=== PATIENT | male | born 1950 | race Caucasian/White ===

== ENCOUNTER 2018-02-24 11:33 | Emergency (ER) | payer OTHER ==
[~2018-02-24 11:33] MED LIST: CALC60CR4 TOP; CALC60OI6 TP; CELE50CA2 PO; CEP500 PO; CLIN300C99 PO; FOLI0.4T56 PO; GLUC-232 PO; HYDROCORTISONE VALERATE TOP; LACT1TAB2 PO; LISI-362 PO; METH2.5T43 PO; METXR500 PO; MULTIVITAMIN PO; OMEG-61 PO; PRA20 PO; UBID400C6 PO; VIT C WITH ROSE HIPS PO; WESTCORT; [UNRECOGNIZED DRUG - CODE] TOP
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
--- NOTE | 2018-02-24 12:46 | RADIOLOGY IMAGING REPORT ---
FACILITY: [facility] PATIENT NAME: Clement Fuentes : 1950 MR: [id number] V: [id number] EXAM DATE: ORDERING PHYSICIAN: LIN SANTANA TECHNOLOGIST: Location: [facility] [place] Patient: Clement Fuentes : 1950 Visit/Account:[id number] Date of Sevice: 02/24/2018 TIBIA FIBULA RIGHT Indication: Infection. Possible osteomyelitis. Comparison: CT scan 02/27/2017 is reviewed. Findings: Frontal and lateral views of the right tibia-fibula are obtained on a total of 4 images. No acute fracture deformity is identified. There is an old fracture deformity involving the proximal tibial metaphysis and the tibial plateaus. There is a well-corticated defect in the bone involving th e medial tibial cortex. This was seen on the prior CT scan. No soft tissue gas. No evidence of active bone destruction on any image is identified. No radiographic evidence of osteomyelitis. Within the s oft tissues posteriorly involving the distal portion of the lower leg, there is an oval shaped densit y. This was seen on the prior CT scan and may be a postsurgical change. This could be related to hete rotopic bone or myositis ossificans in the appropriate setting. There are scattered surgical clips se en. Within the midportion of the lower leg, there are areas of focal soft tissue swelling identified. There is a heel spur. There are changes of osteoarthritis at the ankle and at the knee. IMPRESSION: 1. No radiographic evidence of osteomyelitis. 2. Old healed fracture deformity of the proximal right tibia with a well-corticated defect in the med ial tibial cortex without change from the prior CT scan. 3. Soft tissue edema involving the midportion of the lower leg. No evidence of soft tissue gas. Report Dictated By: Mathew aJin at 02/24/2018 12:38 PM Report E-Signed By: Mathew Jain at 02/24/2018 12:43 PM WSN:[id number]
[2018-02-24] MEDS ORDERED: CEPH500T7 PO (13:24)
[2018-02-24 13:27] VITALS: BP 130/88
== END 2018-02-24 13:40 | disposition home or self-care (01) ==
LOC: ER 11:52
DX: L03.115 Cellulitis of right lower limb (principal)
CPT/HCPCS: 99283

== ENCOUNTER 2018-02-25 09:23 | Inpatient (IN) | payer OTHER, MEDICARE ==
[~2018-02-25] VITALS: Ht 185.4 cm; Wt 128.8 kg
[~2018-02-25 09:23] MED LIST changes: +CEPH500T7 PO
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
[2018-02-25] MEDS ORDERED: NS 0.9% IV ONE (09:50)
[2018-02-25] MEDS ORDERED: ONDANSETRON 4 MG/2 ML VIAL ONE (09:52)
[2018-02-25 10:09] LABS: PLATELET COUNT, AUTOMATED 247 K/uL (150-450)
[2018-02-25 10:13] LABS: INR 0.97
[2018-02-25] MEDS ORDERED: VANCOMYCIN(*) 1 GM VIAL 2 GM in NS(*) 0.9% 500 ML BAG 500 ML IVPB ONE (11:10)
[2018-02-25] MEDS ORDERED: IOPAMIDOL 76% 50 ML INFUS BTL 50 ML ONE (11:33)
[2018-02-25] MEDS ORDERED: VANCOMYCIN(*) 1 GM VIAL 2 GM, VANCOMYCIN (*) 0.5 GM VIAL 0.5 GM in NS(*) 0.9% 500 ML BA... IVPB ONE (12:00)
--- NOTE | 2018-02-25 12:01 | RADIOLOGY IMAGING REPORT ---
FACILITY: [facility] [place] PATIENT NAME: Clement Fuentes : 1950 MR: [id number] V: [id number] EXAM DATE: [id number] ORDERING PHYSICIAN: JACKIE CRANE TECHNOLOGIST: Location: [facility] Patient: Clement Fuentes : 1950 Visit/Account:[id number] Date of Sevice: 02/25/2018 EXAMINATION: CT Head without intravenous contrast HISTORY: Syncope. TECHNIQUE: Axial images were obtained from the skull base to the vertex without intravenous contrast . Sagittal and coronal reformatted images are also submitted. One of the following dose optimization techniques was utilized in the performance of this exam: Autom ated exposure control; adjustment of the mA and/or kV according to the patient's size; or use of an i terative reconstruction technique. Specific details can be referenced in the facility's radiology C T exam operational policy. COMPARISON: None available. FINDINGS: Brain volume: Normal. Ventricles: Negative. Acute ischemic changes: None. Hemorrhage: None. Masses / edema: None. Vidal-white: Negative. White matter: Negative. Vessels: Calcified plaque in the carotid siphons. Normal density in the dural venous sinuses. Extra-axial: Negative. Calvarium / skull base: Negative. Visualized sinuses / orbits: Mild to moderate mucosal thickening in the right maxillary sinus, ethmo id air cells, and frontal sinuses. Rightward nasal septal deviation. IMPRESSION: No acute intracranial abnormality. Report Dictated By: Dequan Boo MD at 02/25/2018 11:54 AM Report E-Signed By: Deqaun Boo MD at 02/25/2018 11:58 AM WSN:[id number]
--- NOTE | 2018-02-25 12:26 | RADIOLOGY IMAGING REPORT ---
FACILITY: [facility] PATIENT NAME: Clement Fuentes : 1950 MR: [id number] V: [id number] EXAM DATE: ORDERING PHYSICIAN: JACKIE CRANE TECHNOLOGIST: Location: [facility] Patient: Clement Fuentes : 1950 Visit/Account:[id number] Date of Sevice: 02/25/2018 CHEST SINGLE AP Indication: syncope Comparison: Chest x-ray 02/27/2017. Findings: Lungs: Clear. Mediastinum/pulmonary vasculature: Heart size and pulmonary vasculature are normal. Bones/soft tissues: There is an old healed fracture on the right 11th and eighth rib. IMPRESSION: 1. Clear lungs. 2. Old healed right-sided rib fractures. Report Dictated By: Darron Castaneda at 02/25/2018 12:21 PM Report E-Signed By: Darron Castaneda at 02/25/2018 12:23 PM WSN:[id number]
--- NOTE | 2018-02-25 13:52 | RADIOLOGY IMAGING REPORT ---
FACILITY: [facility] [place] PATIENT NAME: Clement Fuentes : 1950 MR: [id number] V: [id number] EXAM DATE: ORDERING PHYSICIAN: JACKIE CRANE TECHNOLOGIST: Location: [facility] Patient: Clement Fuentes : 1950 Visit/Account:[id number] Date of Sevice: 02/25/2018 EXAMINATION: CT abdomen and pelvis with IV contrast HISTORY: Syncope. Nausea, vomiting, diarrhea. TECHNIQUE: Axial CT images of the abdomen and pelvis were obtained with IV contrast, with coronal a nd sagittal 2D reconstructed images. One of the following dose optimization techniques was utilized in the performance of this exam: Autom ated exposure control; adjustment of the mA and/or kV according to the patient's size; or use of an i terative reconstruction technique. Specific details can be referenced in the facility's radiology C T exam operational policy. Contrast: 75 mL of IV Isovue-370. COMPARISON: None. FINDINGS: Liver: Fatty infiltration of the liver. Normal hepatic size and morphology. No focal liver lesion. The hepatic veins and portal veins are patent. Gallbladder and bile ducts: Negative. Spleen: Negative. Pancreas: Negative. Adrenal glands: Negative. Kidneys: Single nonobstructing 2 mm calculus in the mid right kidney. No hydronephrosis. There is a 1.9 cm cortical cyst along the lower pole of the right kidney. Bowel and peritoneum: The small bowel and colon are normal in caliber. No localized bowel wall thic kening. Extensive colonic diverticulosis along the descending and sigmoid colon, without evidence of a localized diverticulitis. Normal appendix. No free fluid or free intraperitoneal air. Pelvic structures: Negative. Lymph node assessment: Negative. Vessels: Scattered vascular calcifications. Normal caliber abdominal aorta. The IVC is patent. Musculoskeletal: Advanced chronic multilevel degenerative changes throughout the spine. No acute o sseous findings. Body wall: Small fat-containing midline ventral hernia just above the umbilicus. Lung bases: Mild scarring or atelectasis at the left lung base. IMPRESSION: 1. No CT evidence of acute intra-abdominal pathology. 2. Colonic diverticulosis, without evidence of diverticulitis. 3. Single small nonobstructing right renal calculus. 4. Normal appendix. Report Dictated By: Vito Noriega MD at 02/25/2018 1:42 PM Report E-Signed By: Vito Noriega MD at 02/25/2018 1:48 PM WSN:[email or web address]
[2018-02-25 15:00] VITALS: BP 107/69
[2018-02-25] MEDS ORDERED: NS(*) 0.9% 1000 ML BAG 1,000 ML IV PRN (15:53)
[2018-02-25] MEDS ORDERED: ACETAMINOPHEN 325 MG TAB PO PRN (15:55)
[2018-02-25] MEDS ORDERED: FLUSH 10 ML SYR IVP PRN (15:55)
[2018-02-25] MEDS: CEFEPIME HCL 2 GM VIAL IVP SCH (16:25)
--- NOTE | 2018-02-25 16:27 | History & Physical ---
History of Present Illness Chief Complaint Vomiting History of Present Illness 67yo male with PMHx significant for HTN, type 2 DM, osteomyelitis right leg. He reports developing redness/pustule over right distal lower leg yesterday. He was seen in the ER and placed on oral Keflex therapy. He states he did well for about 12 hours, but then started having nausea with vomiting and some diarrhea. He additionally felt chilled, but did not appreciate fever. He was lightheaded/dizzy intermittently. The redness on his leg appeared to spread as well. He was seen in the ER and found to have elevated WBC count, elevated lactate, elevated creatinine, and borderline low BP. He was given IV fluids with some improvement in his BPs and labs. He was recommended for admission. History Problems: (1) HTN (hypertension) Status: Chronic (2) Type 2 diabetes mellitus Status: Chronic (3) Osteomyelitis of right leg Status: Resolved (4) Psoriasis Status: Chronic Home Meds Active Scripts Cephalexin 500 Mg Tab (KEFLEX 500 MG TAB) 500 Mg Tablet, 500 MG PO Q6H, #28 TAB 0 Refills Prov:DEQUAN SANTANA FOOD BEVERAGE ATTENDANT-BC 02/24/18 Clindamycin Hcl (CLINDAMYCIN HCL) 300 Mg Capsule, 300 MG PO Q6H, #40 CAPSULE Prov:DENZEL HARRIS BRAIDING OPERATOR-C 02/27/17 Reported Medications Folic Acid (Folic Acid) 0.4 Mg Tablet, 0.4 MG PO DAILY 11/11/11 [place]-3/Dha/Epa/Fish Oil (FISH OIL EC 1,000 MG SOFTGEL) 1 Each Capsule.dr, 1 EACH PO DAILY 11/11/11 Clobetasol Propionate (TEMOVATE E (OR EQUIV)) 30 Gm Cr, 30 GM TOP APPLY TO SITES NEEDED 11/11/11 [Hydrocort Valerate ] No Conflict Check, TOP DAILY APPLIED TO AFFECTED AREAS 11/11/11 Betamet Diprop/Calcipotriene (Taclonex Ointment) 60 Gm Oint..gm., 60 GM TP DAILY APPLIES TO PSORIASIS SITES 11/11/11 [Westcort Cream] No Conflict Check APPLIES TO PSORIASIS SITES. 11/11/11 Gluc 2KCL/Chondr/Priyanka Hy/Hy Ac (GLUCOSAMINE & CHONDROITIN CAP) 1 Each Capsule, 3 EACH PO DAILY 11/11/11 Ubidecarenone (CO Q-10) 400 Mg Capsule, 50 MG PO DAILY 11/11/11 Lactobacillus Acidophilus (ACIDOPHILUS) 1 Each Tablet, 1 EACH PO DAILY 11/11/11 [Vit C With Gabi Hips] No Conflict Check, 2 PO DAILY 11/11/11 [Multivitamin] No Conflict Check, PO DAILY 11/11/11 Celecoxib (Celebrex) 50 Mg Capsule, 200 MG PO DAILY, 0 Refills 04/18/10 Pravastatin Sod (Pravachol) 20 Mg Tab, 20 MG PO QODAY, 0 Refills 04/18/10 Metformin Hcl (Metformin Er) 500 Mg Tab.sr.24h, 1000 MG PO BID, 0 Refills 04/18/10 Lisinopril (Lisinopril) 10 Mg Tablet, 10 MG PO DAILY, 0 Refills 04/18/10 Allergies: Coded Allergies: No Known Drug Allergies (Unverified , 02/25/18) Hx Smoking: Yes Hx Alcohol Use: No Review of Systems Constitutional: Chills; No Fever Neurological: Syncope, Weakness Cardiovascular: No Chest Pain, No Palpitations Respiratory: No Shortness of Breath, No Cough Gastrointestinal: Nausea, Vomiting, Diarrhea Genitourinary: No Dysuria Musculoskeletal: Pain Exam Vital Signs Vital Signs Date Time Temp Pulse Resp B/P (MAP) Pulse Ox O2 Delivery O2 Flow Rate FiO2 02/25/18 15:00 107/69 (82) 02/25/18 14:40 82 94 Nasal Cannula 2 02/25/18 13:05 14 General Appearance: Alert, Awake Neuro: No Gross deficits ENT: Oropharynx Clear Neck: No Masses Cardiovascular: Regular Rate and Rhythm Respiratory: Clear to Auscultation GI: Abd Soft and Non-Tender : No CVA Tenderness Extremities: Warm, Perfused, Other (RLE with multiple healed surgical scars/muscle flap/skin graft scars. Distal RLE has erythema in near circuferential pattern with an open area over posterolateral aspect - no current drainage is noted, but a small amount of eschar.) Integumentary: Other (some chronic venous stasis changes on anterior tibial area RLE) Psych: Alert & Oriented X3 Medical Decision Making Data Points Result Diagram: 02/25/18 0945 02/25/18 1424 Item Value Date Time C-Reactive Protein 4.4 mg/dl H 02/25/18 0945 Troponin I < 0.012 ng/ml 02/25/18 0945 Total Creatine Kinase 52 U/L L 02/25/18 0945 Lactate 4.4 mmol/L *H 02/25/18 0945 Calcium Level 9.5 mg/dl 02/25/18 0945 Total Bilirubin 0.7 mg/dl 02/25/18 0945 Aspartate Amino Transf (AST/SGOT) 20 U/L 02/25/18 0945 Alanine Aminotransferase (ALT/SGPT) 24 U/L 02/25/18 0945 Alkaline Phosphatase 100 U/L 02/25/18 0945 Total Protein 8.0 g/dl 02/25/18 0945 Albumin 4.6 g/dl 02/25/18 0945 Urine Mucus Few /HPF 02/25/18 1145 Urine Hyaline Casts Many /LPF H 02/25/18 1145 Urine Bacteria Negative /HPF 02/25/18 1145 Urine Squamous Epithelial Cells Few /LPF 02/25/18 1145 Urine WBC <1 /HPF 02/25/18 1145 Urine RBC None /HPF 02/25/18 1145 Urine Leukocyte Esterase Negative 02/25/18 1145 Urine Urobilinogen Negative mg/dL 02/25/18 1145 Urine Bilirubin Negative 02/25/18 1145 Urine Nitrite Negative 02/25/18 1145 Urine Blood Negative 02/25/18 1145 Urine Ketones Trace mg/dL 02/25/18 1145 Urine Glucose (UA) Negative mg/dL 02/25/18 1145 Urine Protein Negative mg/dL 02/25/18 1145 Urine Specific [place] 1.013 02/25/18 1145 Urine pH 5.0 pH 02/25/18 1145 Urine Clarity Clear 02/25/18 1145 Urine Color Yellow 02/25/18 1145 Influenza Virus Type A (PCR) Negative 02/25/18 1022 Influenza Virus Type B (PCR) Negative 02/25/18 1022 Stool Leukocytes, Qualitative Negative 02/25/18 1020 Activated Partial Thromboplast Time 28 seconds 02/25/18 0945 Prothrombin Time 12.9 seconds 02/25/18 0945 Prothromb Time International Ratio 0.97 02/25/18 0945 EKG / Imaging Imaging PATIENT NAME: Clement Fuentes : 1950 MR: [id number] V: [id number] EXAM DATE: [id number] ORDERING PHYSICIAN: JACKIE CRANE TECHNOLOGIST: Location: [facility] Patient: Clement Fuentes : 1950 Visit/Account:[id number] Date of Sevice: 02/25/2018 CHEST SINGLE AP Indication: syncope Comparison: Chest x-ray 02/27/2017. Findings: Lungs: Clear. Mediastinum/pulmonary vasculature: Heart size and pulmonary vasculature are normal. Bones/soft tissues: There is an old healed fracture on the right 11th and eighth rib. IMPRESSION: 1. Clear lungs. 2. Old healed right-sided rib fractures. Report Dictated By: Darron Castaneda at 02/25/2018 12:21 PM Report E-Signed By: Darron Castaneda at 02/25/2018 12:23 PM WSN:[id number] PATIENT NAME: Clement Fuentes : 1950 MR: [id number] V: [id number] EXAM DATE: [id number] ORDERING PHYSICIAN: JACKIE CRANE TECHNOLOGIST: Location: [facility] Patient: Clement Fuentes : 1950 Visit/Account:[id number] Date of Sevice: 02/25/2018 EXAMINATION: CT abdomen and pelvis with IV contrast HISTORY: Syncope. Nausea, vomiting, diarrhea. TECHNIQUE: Axial CT images of the abdomen and pelvis were obtained with IV contrast, with coronal and sagittal 2D reconstructed images. One of the following dose optimization techniques was utilized in the performance of this exam: Automated exposure control; adjustment of the mA and/or kV according to the patient's size; or use of an iterative reconstruction technique. Specific details can be referenced in the facility's radiology CT exam operational policy. Contrast: 75 mL of IV Isovue-370. COMPARISON: None. FINDINGS: Liver: Fatty infiltration of the liver. Normal hepatic size and morphology. No focal liver lesion. The hepatic veins and portal veins are patent. Gallbladder and bile ducts: Negative. Spleen: Negative. Pancreas: Negative. Adrenal glands: Negative. Kidneys: Single nonobstructing 2 mm calculus in the mid right kidney. No hydronephrosis. There is a 1.9 cm cortical cyst along the lower pole of the right kidney. Bowel and peritoneum: The small bowel and colon are normal in caliber. No lo calized bowel wall thickening. Extensive colonic diverticulosis along the descending and sigmoid colon, without evidence of a localized diverticulitis. Normal appendix. No free fluid or free intraperitoneal air. Pelvic structures: Negative. Lymph node assessment: Negative. Vessels: Scattered vascular calcifications. Normal caliber abdominal aorta. The IVC is patent. Musculoskeletal: Advanced chronic multilevel degenerative changes throughout the spine. No acute osseous findings. Body wall: Small fat-containing midline ventral hernia just above the umbilicus. Lung bases: Mild scarring or atelectasis at the left lung base. IMPRESSION: 1. No CT evidence of acute intra-abdominal pathology. 2. Colonic diverticulosis, without evidence of diverticulitis. 3. Single small nonobstructing right renal calculus. 4. Normal appendix. Report Dictated By: Vito Noriega MD at 02/25/2018 1:42 PM Report E-Signed By: Vito Noriega MD at 02/25/2018 1:48 PM WSN:[id number] PATIENT NAME: Clement Fuentes : 1950 MR: [id number] V: [id number] EXAM DATE: [id number] ORDERING PHYSICIAN: JACKIE CRANE TECHNOLOGIST: Location: [facility] Patient: Clement Fuentes : 1950 Visit/Account:[id number] Date of Sevice: 02/25/2018 EXAMINATION: CT Head without intravenous contrast HISTORY: Syncope. TECHNIQUE: Axial images were obtained from the skull base to the vertex without intravenous contrast. Sagittal and coronal reformatted images are also submitted. One of the following dose optimization techniques was utilized in the performance of this exam: Automated exposure control; adjustment of the mA and/ or kV according to the patient's size; or use of an iterative reconstruction technique. Specific details can be referenced in the facility's radiology CT exam operational policy. COMPARISON: None available. FINDINGS: Brain volume: Normal. Ventricles: Negative. Acute ischemic changes: None. Hemorrhage: None. Masses / edema: None. Vidal-white: Negative. White matter: Negative. Vessels: Calcified plaque in the carotid siphons. Normal density in the dural venous sinuses. Extra-axial: Negative. Calvarium / skull base: Negative. Visualized sinuses / orbits: Mild to moderate mucosal thickening in the right maxillary sinus, ethmoid air cells, and frontal sinuses. Rightward nasal septal deviation. IMPRESSION: No acute intracranial abnormality. Report Dictated By: Dequan Boo MD at 02/25/2018 11:54 AM Report E-Signed By: Dequan Boo MD at 02/25/2018 11:58 AM WSN:[id number] PATIENT NAME: Clement Fuentes : 1950 MR: [id number] V: [id number] EXAM DATE: ORDERING PHYSICIAN: DEQUAN SANTANA TECHNOLOGIST: Location: [facility] Patient: Clement Fuentes : 1950 Visit/Account:[id number] Date of Sevice: 02/24/2018 TIBIA FIBULA RIGHT Indication: Infection. Possible osteomyelitis. Comparison: CT scan 02/27/2017 is reviewed. Findings: Frontal and lateral views of the right tibia-fibula are obtained on a total of 4 images. No acute fracture deformity is identified. There is an old fracture deformity involving the proximal tibial metaphysis and the tibial plateaus. There is a well-corticated defect in the bone involving the medial tibial cortex. This was seen on the prior CT scan. No soft tissue gas. No evidence of active bone destruction on any image is identified. No radiographic evidence of osteomyelitis. Within the soft tissues posteriorly involving the distal portion of the lower leg, there is an oval shaped density. This was seen on the prior CT scan and may be a postsurgical change. This could be related to heterotopic bone or myositis ossificans in the appropriate setting. There are scattered surgical clips seen. Within the midportion of the lower leg, there are areas of focal soft tissue swelling identified. There is a heel spur. There are changes of osteoarthritis at the ankle and at the knee. IMPRESSION: 1. No radiographic evidence of osteomyelitis. 2. Old healed fracture deformity of the proximal right tibia with a well-c orticated defect in the medial tibial cortex without change from the prior CT scan. 3. Soft tissue edema involving the midportion of the lower leg. No evidence of soft tissue gas. Report Dictated By: Mathew Jain at 02/24/2018 12:38 PM Report E-Signed By: Mathew Jain at 02/24/2018 12:43 PM WSN:[id number] Assessment and Plan Problems: (1) Cellulitis of right lower extremity Status: Acute Assessment & Plan: It appears he has significant cellulitis of his RLE with possible early sepsis as well. He will be placed on IV vancomycin and cefepime. Blood cultures have been obtained. No obvious fluid/pus for wound culture at this time. Start wound care. Will watch labs closely. Try to get records from his osteomyelitis treatment. He is at risk for potentially resistant organisms. (2) Sepsis Status: Acute Assessment & Plan: Due to cellulitis. Will monitor lactate levels. Watch closely. Give generous IV fluids. (3) Dehydration Status: Acute Assessment & Plan: Due to poor intake/vomiting. Will give generous IV fluids. (4) Type 2 diabetes mellitus Status: Chronic Assessment & Plan: Will hold his usual metformin (it could contribute to his lactic acidosis). Will place on ADA diet, monitor glucoses and use SSI as needed. (5) HTN (hypertension) Status: Chronic Assessment & Plan: Will hold his lisinopril as his BPs have been marginal due to dehydration and potential sepsis. (6) Osteomyelitis of right leg Status: Resolved Assessment & Plan: Will try to get old records. Copies to: [facility] ; Venous Thromboembolism Antithrombotics Is Pt On Any Antithrombotics?: Yes Exam Sepsis Risk: Possible Sepsis Risk Problem Qualifiers (1) Sepsis: Sepsis type: sepsis due to unspecified organism Qualified Codes: A41.9 - Sepsis, unspecified organism GALEN ADAMSON MD Feb 25, 2018 16:27
[2018-02-25] MEDS: INSULIN HUM LISPRO 100 UN/ML 3 ML VIAL SUBQ PRN ×2 (17:44→21:23)
[2018-02-25] MEDS: LACTOBACILLUS ACIDOPHILUS TAB PO SCH (17:44)
[2018-02-25 18:57] VITALS: BP 114/64
[2018-02-25] MEDS: NS(*) 0.9% 1000 ML BAG 1,000 ML IV PRN (22:34)
[2018-02-25 23:15] VITALS: BP 114/57
[2018-02-25] MEDS ORDERED: VANCOMYCIN(*) 1 GM VIAL 1 GM, VANCOMYCIN HCL 0.750 GM VIAL 0.75 GM in NS(*) 0.9% 250 ML... IVPB SCH (23:30)
[2018-02-26 03:16] VITALS: BP 114/60
[2018-02-26] MEDS: CEFEPIME HCL 2 GM VIAL IVP SCH ×2 (03:47→16:39)
[2018-02-26 06:10] LABS: PLATELET COUNT, AUTOMATED 144 K/uL (150-450)
[2018-02-26] MEDS: INSULIN HUM LISPRO 100 UN/ML 3 ML VIAL SUBQ PRN ×2 (07:59→11:57)
[2018-02-26] MEDS ORDERED: ONDANSETRON 4 MG/2 ML VIAL IVP PRN (08:30)
[2018-02-26] MEDS ORDERED: LOPERAMIDE HCL 2 MG CAP PO PRN (08:35)
[2018-02-26] MEDS: LACTOBACILLUS ACIDOPHILUS TAB PO SCH ×2 (08:39→16:39)
[2018-02-26] MEDS: ASPIRIN 325 MG ENTERIC COATED PO SCH (08:39)
[2018-02-26] MEDS: ENOXAPARIN 40 MG/0.4ML SYR SC SCH (08:40)
[2018-02-26 08:50] VITALS: BP 111/67
[2018-02-26] MEDS: NS(*) 0.9% 1000 ML BAG 1,000 ML IV PRN ×2 (09:55→23:13)
--- NOTE | 2018-02-26 10:20 | Hospitalist Progress Note ---
Subjective Progress Notes Subjective This patient was admitted for cellulitis. He had no acute events overnight. Patient Complains of: Cardiovascular: No: Chest Pain Respiratory: No: Shortness of Breath Physical Exam Vital Signs Date Time Temp Pulse Resp B/P (MAP) Pulse Ox O2 Delivery O2 Flow Rate FiO2 02/26/18 08:50 97.9 83 16 111/67 (82) 96 Nasal Cannula 1.0 Intake and Output 02/26/18 06:59 Intake Total 6037.5 ml Output Total 500 ml Balance 5537.5 ml Intake Oral 770 ml IV Total 5267.5 ml Output Stool Total 500 ml # Voids 8 # Bowel Movements 8 Cardiovascular: Regular Rate and Rhythm Respiratory: Clear to Auscultation Integumentary: Other (Significantly reduced erythema of right lower leg.) Result Diagram: 02/26/18 0553 02/26/18 0555 Item Value Date Time Blood Culture - Preliminary Resulted 02/25/18 1000 Blood Peripheral Draw NO GROWTH AFTER 1 DAY, REINCUBATED Blood Culture - Preliminary Resulted 02/25/18 0945 Blood Peripheral Draw NO GROWTH AFTER 1 DAY, REINCUBATED Monitor Interpretation: Normal Sinus Rhythm Assessment and Plan Problems: (1) Cellulitis of right lower extremity Status: Acute Assessment & Plan: He did present with increased erythema of the right lower leg. His WBC was elevated and he also had a low grade fever. He was started on empiric treatment with cefepime and vancomycin. His erythema has improved and his WBC is decreased. Cultures are negative to date. He can likely switch to oral antibiotics if his cultures remain negative. (2) Sepsis Status: Acute Assessment & Plan: He did have an elevated WBC and increased lactate. He is improving as above. (3) Dehydration Status: Acute Assessment & Plan: Resolved with IV fluids. (4) Type 2 diabetes mellitus Status: Chronic Assessment & Plan: He is on chronic treatment with metformin, which has been held secondary to lactic acidosis. He is on sliding scale level #2. (5) HTN (hypertension) Status: Chronic Assessment & Plan: He is on chronic treatment with lisinopril, which has been on hold. His blood pressure is controlled without medication. (6) Osteomyelitis of right leg Status: Resolved Assessment & Plan: He does have a history of extensive surgery to the right leg, and subsequent osteomyelitis. An x-ray is pending. (7) Diarrhea Assessment & Plan: His initial complaint was diarrhea, and it persists today. Imodium has been ordered. Exam Sepsis Risk: No Definite Risk Problem Qualifiers (1) Sepsis: Sepsis type: sepsis due to unspecified organism Qualified Codes: A41.9 - Sepsis, unspecified organism (2) HTN (hypertension): Hypertension type: essential hypertension Qualified Codes: I10 - Essential (primary) hypertension ALLAN KHAN DO Feb 26, 2018 10:20
[2018-02-26] MEDS ORDERED: VANCOMYCIN(*) 1 GM VIAL 1 GM, VANCOMYCIN HCL 0.750 GM VIAL 0.75 GM in NS(*) 0.9% 250 ML... IVPB ONE (11:45)
--- NOTE | 2018-02-26 12:02 | RADIOLOGY IMAGING REPORT ---
FACILITY: [facility] PATIENT NAME: Clement Fuentes : 1950 MR: [id number] V: [id number] EXAM DATE: ORDERING PHYSICIAN: ALLAN KHAN TECHNOLOGIST: Location: [facility] Patient: Clement Fuentes : 1950 Visit/Account:[id number] Date of Sevice: 02/26/2018 Exam type: TIBIA FIBULA RIGHT History: cellulitis Comparison: February 24, 2018. Findings: Frontal and lateral views of the right tibia and fibula were submitted. When compared to the prior s tudy there has been no significant interval change. Old fracture deformity involving the proximal ti bial metaphysis and tibial plateaus again seen. Well-corticated defect involving the medial tibial c ortex also appears stable when compared to the prior study. Ovoid shaped bony density is again seen projecting posterior to the distal right tibia apparently a chronic finding. There is old cortical t hickening involving the right tibia and calcifications in the intraosseous membrane. Surgical clips also noted in the midportion of the right lower leg. Soft tissue edema appears similar to the prior study. IMPRESSION: 1. Chronic changes of the right tibia and fibula as detailed above although no plain radiographic ev idence evidence of active osteomyelitis Report Dictated By: Steph Gomez MD at 02/26/2018 11:52 AM Report E-Signed By: Steph Gomez MD at 02/26/2018 11:57 AM WSN:[email or web address]
[2018-02-26 12:07] VITALS: BP 111/65
--- NOTE | 2018-02-26 14:10 | Medical Nutrition Therapy ---
Nutrition Anthropometrics Height (Inches): 73.00 Height (Calculated Centimeters: 185.136082 Weight (Pounds): 284 Weight (Calculated Kilograms): 128.820 Carroll Nutrition Score: Adequate Carroll Nutrition Risk Score: 20 Dietary Referral Nutrition Risk Factors: Nutrition Risk Comment: Physical Findings Physical Appearance: Obese BMI 30-39 Skin Appearance Skin Appearance: Edema Edema Location Modifier: Both Edema Location: Lower Extremity Type of Edema: Degree of Edema: 1+ Gastrointestinal Symptoms GI Symtoms: Nausea, Diarrhea, Change in Bowel Pattern Tube Present: Bowel Sounds: Recent Bowel Pattern: Diarrhea Stool Characteristics: Nutritional Diagnosis Nutritional Risk Acuity 2: Sepsis Nutritional Risk Acuity 3: Nausea Nutritional Acuity: 2-Moderate Nutrition Diagnosis: Increased Nutrient Needs Nutrition Etiology: Physiological Causes Nutrition Problem/Etiology/Sym: AEB dx spesis with alb 2.8 Adjusted Energy Requirement Re: 2800 (I- J X 1.1 SF adj for obesity) Protein Requirement: 105 (1.3 gm/kg IBW) Diet Type: Diabetic Nutrition Intervention: Cont diet as ordered, Encourage intake Nutrition Monitoring & Eval Nutrition Goals: Eat 75-100% Meal RD Patient Assessment Time: [address] Assessment Type: RD Assessment Patient Nutrition Acuity: 2-Moderate Follow Up Date: Mar 03, 2018 Nutritional Comment: 02/26 Pt admitted for sepsis with cellulites LE and hx of osteomyelitis. Pt has dx T2DM. BG rannging 175- 193, Pr reporting N/V. Alb 2.8. Pt has 1+ edema LE. Anticipate wt loss when edema resolved. BMI is in class 2 obesity range. Pt is on diabetic diet. Pt ate 100% of cleart liquid, no intake report when diet advanced. Will cont to monitor and encourage intake. CONCEPCION GAO Feb 26, 2018 13:01
[2018-02-26 15:08] VITALS: BP 129/80
[2018-02-26] MEDS: VANCOMYCIN(*) 1 GM VIAL 1 GM, VANCOMYCIN HCL 0.750 GM VIAL 0.75 GM in NS(*) 0.9% 250 ML... IVPB SCH (19:06)
[2018-02-26] MEDS ORDERED: METF-452 PO (19:12)
[2018-02-26] MEDS ORDERED: CELE200C7 PO (19:12)
[2018-02-26] MEDS ORDERED: PRAV10TA46 PO (19:12)
[2018-02-26 19:55] VITALS: BP 101/67
[2018-02-26 23:16] VITALS: BP 119/74
[2018-02-27] MEDS: CEFEPIME HCL 2 GM VIAL IVP SCH (04:00)
[2018-02-27 04:11] VITALS: BP 118/73
[2018-02-27] MEDS: VANCOMYCIN(*) 1 GM VIAL 1 GM, VANCOMYCIN HCL 0.750 GM VIAL 0.75 GM in NS(*) 0.9% 250 ML... IVPB SCH (04:11)
[2018-02-27 05:55] LABS: PLATELET COUNT, AUTOMATED 140 K/uL (150-450)
[2018-02-27 07:17] VITALS: BP 107/66
[2018-02-27] MEDS: LACTOBACILLUS ACIDOPHILUS TAB PO SCH ×2 (08:38→17:53)
[2018-02-27] MEDS: ASPIRIN 325 MG ENTERIC COATED PO SCH (08:38)
[2018-02-27] MEDS: ENOXAPARIN 40 MG/0.4ML SYR SC SCH (08:38)
[2018-02-27 12:12] VITALS: BP 122/67
[2018-02-27] MEDS: CEPHALEXIN MONO 500 MG CAP PO SCH ×3 (13:38→20:02)
--- NOTE | 2018-02-27 14:05 | Hospitalist Progress Note ---
Subjective Progress Notes Subjective 67M admitted for cellulitis, ADRIEN overnight. Feeling much better, change to PO antibiotic, observe for 24 hours if afebrile plan d/c home. Patient Complains of: Respiratory: No: Cough, Congestion Gastrointestinal: No Nausea, No Vomiting Musculoskeletal: No: Pain Physical Exam Vital Signs Date Time Temp Pulse Resp B/P (MAP) Pulse Ox O2 Delivery O2 Flow Rate FiO2 02/27/18 12:12 98.9 69 16 122/67 (85) 97 Nasal Cannula 1.0 Intake and Output 02/27/18 06:59 Intake Total 4069 ml Balance 4069 ml Intake Oral 2090 ml IV Total 1979 ml # Voids 7 # Bowel Movements 2 General Appearance: Alert, Awake, No Acute Distress Neuro: No Gross deficits Eyes: PERRLA ENT: Normal Cardiovascular: Normal Rhythm & Peripheral Pulses Respiratory: No Respiratory Distress GI: Soft and Non-Tender Extremities: Soft and Non Tender, Warm, Pulses, Perfused Integumentary: Skin Intact without Lesion / Mass (other than healing L lateral ankle wound) Psych: Alert & Oriented X3 Result Diagram: 02/27/18 0532 02/27/18 0532 Monitor Interpretation: Normal Sinus Rhythm Assessment and Plan Problems: (1) Cellulitis of right lower extremity Status: Acute Assessment & Plan: He did present with increased erythema of the right lower leg. His WBC was elevated and he also had a low grade fever. He was started on empiric treatment with cefepime and vancomycin. His erythema has improved and his WBC is decreased. Cultures are negative to date. Change to PO Keflex and monitor for 24 hours. (2) Sepsis Status: Acute Assessment & Plan: He did have an elevated WBC and increased lactate. He is improving as above. (3) Dehydration Status: Acute Assessment & Plan: Resolved with IV fluids. (4) Type 2 diabetes mellitus Status: Chronic Assessment & Plan: He is on chronic treatment with metformin, which has been held secondary to lactic acidosis. He is on sliding scale level #2. (5) HTN (hypertension) Status: Chronic Assessment & Plan: He is on chronic treatment with lisinopril, which has been on hold. His blood pressure is controlled without medication. (6) Osteomyelitis of right leg Status: Resolved Assessment & Plan: He does have a history of extensive surgery to the right leg, and subsequent osteomyelitis. An x-ray is pending. (7) Diarrhea Assessment & Plan: His initial complaint was diarrhea, Imodium has been ordered with improvement in diarrhea. Exam Sepsis Risk: No Definite Risk Problem Qualifiers (1) Sepsis: Sepsis type: sepsis due to unspecified organism Qualified Codes: A41.9 - Sepsis, unspecified organism (2) HTN (hypertension): Hypertension type: essential hypertension Qualified Codes: I10 - Essential (primary) hypertension STEFANIE BECK DO Feb 27, 2018 14:05
[2018-02-27 15:09] VITALS: BP 117/76
[2018-02-27 19:55] VITALS: BP 131/81
[2018-02-28 03:12] VITALS: BP 142/81
[2018-02-28 06:57] VITALS: BP 116/75
--- NOTE | 2018-02-28 09:29 | Antimicrobial Stewardship ---
Antimicrobial Time Out Antimicrobial Stewardship MD Service: Hospitalist Indications: Cellulitis (Cellulitis of right lower extremity) Antimicrobial Used * Vancomycin and Cefepime started on 02/25/18 * Switched to Keflex 500 mg QID on 02/27/18 Start Date: Feb 25, 2018 Culture Results: Yes (Blood Cx: No growth ) Comments Comments Treat for a total of 5-7 days DREA KIM V Feb 28, 2018 09:29
[2018-02-28] MEDS: CEPHALEXIN MONO 500 MG CAP PO SCH (09:57)
[2018-02-28] MEDS: LACTOBACILLUS ACIDOPHILUS TAB PO SCH (09:58)
[2018-02-28] MEDS: ASPIRIN 325 MG ENTERIC COATED PO SCH (09:58)
[2018-02-28] MEDS: ENOXAPARIN 40 MG/0.4ML SYR SC SCH (09:58)
--- NOTE | 2018-02-28 11:10 | Hospitalist Depart ---
Discharge Summary Reason for Hosp/Final Diag: (1) Cellulitis of right lower extremity Status: Acute Hospital Course & Plan: He did present with increased erythema of the right lower leg. His WBC was elevated and he also had a low grade fever. He was started on empiric treatment with cefepime and vancomycin. His erythema has improved and his WBC is decreased. Cultures are negative to date. No on PO Keflex and doing well. He will finish a course of Keflex (6 more days), which he has from his previous ER visit. (2) Sepsis Status: Acute Hospital Course & Plan: He did have an elevated WBC and increased lactate, but he was dehydrated from a gastroenteritis illness. He is improving as above. Acidosis resolved (bicarbonate normalized). (3) Dehydration Status: Acute Hospital Course & Plan: Resolved with IV fluids. (4) Type 2 diabetes mellitus Status: Chronic Hospital Course & Plan: He is on chronic treatment with metformin, which had been held secondary to lactic acidosis. Acidosis has resolved (normal bica rbonate). He is on sliding scale level #2. Will restart metformin. (5) HTN (hypertension) Status: Chronic Hospital Course & Plan: He is on chronic treatment with lisinopril, which has been on hold. Will restart. (6) Osteomyelitis of right leg Status: Resolved Hospital Course & Plan: He does have a history of extensive surgery to the right leg, and subsequent osteomyelitis. An x-ray is pending. (7) Diarrhea Status: Resolved Hospital Course & Plan: His initial complaint was diarrhea. Imodium has been ordered with improvement in diarrhea. Stool cultures were consistent with normal cecile. (8) Anemia Status: Chronic Hospital Course & Plan: Normocytic anemia noted back to 2010. Will defer to his PCP for further work up. Departure Weight (Pounds): 284 Result Diagram: 02/27/18 0532 02/27/18 0532 Item Value Date Time White Blood Count 15.1 k/uL H 02/25/18 0945 Erythrocyte Sedimentation Rate 7 mm/HOUR 02/25/18 0945 Hemoglobin 17.2 g/dL 02/25/18 0945 Hemoglobin 13.6 g/dL L 02/26/18 0553 Hemoglobin 13.0 g/dL L 02/27/18 0532 Platelet Count 140 K/uL L 02/27/18 0532 Platelet Count 144 K/uL L 02/26/18 0553 Platelet Count 247 K/uL 02/25/18 0945 Neutrophils (%) (Auto) 63.4 % 02/27/18 0532 Neutrophils (%) (Auto) 82.2 % H 02/26/18 0553 Neutrophils (%) (Auto) 89.0 % H 02/25/18 0945 Prothromb Time International Ratio 0.97 02/25/18 0945 Lactate 4.4 mmol/L *H 02/25/18 0945 Sodium Level 139 mmol/L 02/25/18 0945 Potassium Level 4.7 mmol/L 02/25/18 0945 Chloride Level 102 mmol/L 02/25/18 0945 Carbon Dioxide Level 20 mmol/L L 02/25/18 0945 Blood Urea Nitrogen 23 mg/dl H 02/25/18 0945 Creatinine 1.30 mg/dl H 02/25/18 0945 Total Creatine Kinase 52 U/L L 02/25/18 0945 Troponin I < 0.012 ng/ml 02/25/18 0945 C-Reactive Protein 4.4 mg/dl H 02/25/18 0945 Calcium Level 9.5 mg/dl 02/25/18 0945 Total Bilirubin 0.7 mg/dl 02/25/18 0945 Aspartate Amino Transf (AST/SGOT) 20 U/L 02/25/18 0945 Alkaline Phosphatase 100 U/L 02/25/18 0945 Alanine Aminotransferase (ALT/SGPT) 24 U/L 02/25/18 0945 Lactate 3.5 mmol/L H 02/25/18 1424 Blood Urea Nitrogen 21 mg/dl 02/25/18 1424 Creatinine 1.00 mg/dl 02/25/18 1424 Carbon Dioxide Level 21 mmol/L L 02/25/18 1424 Carbon Dioxide Level 18 mmol/L L 02/26/18 0555 Blood Urea Nitrogen 17 mg/dl 02/26/18 0555 Creatinine 0.80 mg/dl 02/26/18 0555 C-Reactive Protein 7.8 mg/dl H 02/26/18 0555 Blood cultures without growth x2 from 02/25. SPEC #: [id number] LIZZY: 02/25/18 STATUS: COMP REQ #: [id number] RECD: 02/25/[address]: JACKIE CRANE MD SOURCE: STOOL ENTR: 02/25/18-[address] [facility] [address]: [facility] SPDESC: ORDERED: CULT STOOL Procedure Result Verified STOOL CULTURE Final 02/27/18-1003 NORMAL BOWEL CECILE PRESENT NO PATHOGENS PRESENT Imaging 02/26/18 Tib/Fib Xray - 1. Chronic changes of the right tibia and fibula as detailed above although no plain radiographic evidence evidence of active osteomyelitis 02/25/18 CXR - 1. Clear lungs. 2. Old healed right-sided rib fractures. 02/25/18 Abd/Pelvis CT - 1. No CT evidence of acute intra-abdominal pathology. 2. Colonic diverticulosis, without evidence of diverticulitis. 3. Single small nonobstructing right renal calculus. 4. Normal appendix. 02/25/[address] - 1. No CT evidence of acute intra-abdominal pathology. 2. Colonic diverticulosis, without evidence of diverticulitis. 3. Single small nonobstructing right renal calculus. 4. Normal appendix. Condition: Improved Discharge: Home Discharge Instructions Home Meds Active Scripts Cephalexin 500 Mg Tab (KEFLEX 500 MG TAB) 500 Mg Tablet, 500 MG PO Q6H, #28 TAB 0 Refills Prov:LIN SANTANA COMPONENT LAB TECH-BC 02/24/18 Reported Medications Celecoxib (Celecoxib) 200 Mg Capsule, 1 CAP PO QDAY 02/26/18 Pravastatin Sodium (PRAVASTATIN SODIUM) 10 Mg Tablet, 10 MG PO QDAY 02/26/18 Metformin Hcl (METFORMIN HCL) 1,000 Mg Tablet, 1 TAB PO BID, TAB 02/26/18 Folic Acid (Folic Acid) 0.4 Mg Tablet, 0.4 MG PO DAILY 11/11/11 [place]-3/Dha/Epa/Fish Oil (FISH OIL EC 1,000 MG SOFTGEL) 1 Each Capsule.dr, 1 EACH PO DAILY 11/11/11 Clobetasol Propionate (TEMOVATE E (OR EQUIV)) 30 Gm Cr, 30 GM TOP APPLY TO SITES NEEDED 11/11/11 Betamet Diprop/Calcipotriene (Taclonex Ointment) 60 Gm Oint..gm., 60 GM TP DAILY APPLIES TO PSORIASIS SITES 11/11/11 [Westcort Cream] No Conflict Check APPLIES TO PSORIASIS SITES. 11/11/11 Gluc 2KCL/Chondr/Lizzy Hy/Hy Ac (GLUCOSAMINE & CHONDROITIN CAP) 1 Each Capsule, 3 EACH PO DAILY 11/11/11 Ubidecarenone (CO Q-10) 400 Mg Capsule, 50 MG PO DAILY 11/11/11 Lactobacillus Acidophilus (ACIDOPHILUS) 1 Each Tablet, 1 EACH PO DAILY 11/11/11 [Vit C With Gabi Hips] No Conflict Check, 2 PO DAILY 11/11/11 [Multivitamin] No Conflict Check, PO DAILY 11/11/11 Lisinopril (Lisinopril) 10 Mg Tablet, 10 MG PO DAILY, 0 Refills 04/18/10 Discontinued Reported Medications [Hydrocort Valerate ] No Conflict Check, TOP DAILY APPLIED TO AFFECTED AREAS 11/11/11 Celecoxib (Celebrex) 50 Mg Capsule, 200 MG PO DAILY, 0 Refills 04/18/10 Pravastatin Sod (Pravachol) 20 Mg Tab, 20 MG PO QODAY, 0 Refills 04/18/10 Metformin Hcl (Metformin Er) 500 Mg Tab.sr.24h, 1000 MG PO BID, 0 Refills 04/18/10 Discontinued Scripts Clindamycin Hcl (CLINDAMYCIN HCL) 300 Mg Capsule, 300 MG PO Q6H, #40 CAPSULE Prov:DENZEL HARRIS 02/27/17 Diet: Diabetic Activity: As Tolerated Special Instructions: Follow up with your PCP in 1-2 weeks to follow up the infection and blood pressure Go to the ER for return of the nausea, vomiting, worsening redness on the leg, fevers, or chills. Copies to: [facility] ; Venous Thromboembolism Antithrombotics Is Pt On Any Antithrombotics?: Yes Problem Qualifiers (1) Sepsis: Sepsis type: sepsis due to unspecified organism Qualified Codes: A41.9 - Sepsis, unspecified organism (2) HTN (hypertension): Hypertension type: essential hypertension Qualified Codes: I10 - Essential (p rimary) hypertension JEFFREY NASH MD Feb 28, 2018 11:10
== END 2018-02-28 12:00 | disposition home or self-care (01) | DRG 872 ==
LOC: ER 09:49 → MED 14:59
PROVIDERS: ADMIT Internal Medicine; ATTEND Internal Medicine
DX: A41.9 Sepsis, unspecified organism (principal); L03.115 Cellulitis of right lower limb; E87.2 Acidosis; E86.0 Dehydration; E11.9 Type 2 diabetes mellitus without complications; I10 Essential (primary) hypertension; D64.9 Anemia, unspecified; E78.00 Pure hypercholesterolemia, unspecified; L40.9 Psoriasis, unspecified; Z79.84 Long term (current) use of oral hypoglycemic drugs
CPT/HCPCS: 36415; 36416; 70450; 71045; 74177; 80202; 81001; 82040; 82247; 82310; 82374; 82435; 82550; 82565; 82947; 82948; 83605; 83630; 84075; 84132; 84155; 84295; 84450; 84460; 84484; 84520; 85025; 85610; 85651; 85730; 86140; 87040; 87045; 87502; 96361; 96365; 96375; 99285; J0692; J1650; J2405; J3370; J7030; J7040; J7050; Q9967

== ENCOUNTER → 2018-10-26 | Outpatient (CLI) | payer OTHER, MEDICARE ==
[~2018-10-26] MED LIST changes: +CELE200C7 PO; +GADOBENATE 529MG/1ML 15ML VIAL IVP ONE; +METF-452 PO; +PRAV10TA46 PO
--- NOTE | 2018-10-26 12:23 | RADIOLOGY IMAGING REPORT ---
[place] [facility] [place] NAME: Clement Fuentes : 1950 MR: [id number] V: [id number] EXAM DATE: ORDERING PHYSICIAN: [facility] TECHNOLOGIST: [place] [facility] [place] Fu[place] : 1950 Visit/Account:[id number] Date of Sevice: 10/26/2018 Examination: MRI right tibia-fibula without contrast HISTORY: Skin ulcer. Exposed subcutaneous fat. Evaluate for osteomyelitis. TECHNIQUE: Multiplanar, multisequence MRI examination is performed of the right lower leg before and after the administration of 15 mL IV MultiHance. COMPARISON: No prior MRI. Prior CT scan 02/27/2017 was reviewed. FINDINGS: The MRI compatible marker is identified along the anterolateral aspect of the mid shaft of the tibia. At the level of the marker, there is evidence of a skin thickening which extends medial and lateral to the marker. There is edema within the underlying subcutaneous tissues. There is an apparent linear tract seen extending through the anterolateral tibial cortex in this location. This tract appears to extend towards the skin surface. Following administration of gadolinium, there is enhancement along this tract. There is enhancement within the adjacent marrow space. MRI findings are consistent with a sinus tract in the setting of chronic osteomyelitis. Correlate for a draining soft tissue wound. No well-defined soft tissue abscess is seen. There is enhancement of the skin and the subcutaneous tissu es about the marker extending proximal and distal. Correlate for an associated cellulitis. Within the more proximal tibia, there is evidence of an old healed tibial plateau fracture. There is a defect in the medial tibial cortex and there is a muscular flap over this defect and extending into the bone. No edema or fluid collection is seen in this region. Correlate with operative history. No marrow pattern of the included fibula. There is atrophy of the musculature of the lower leg most pronounced involving the soleus musculature . IMPRESSION: 1. MRI findings consistent with a sinus tract extending through the anterolateral tibial cortex of th e right lower leg at the site of the soft tissue abnormality. Correlate for a draining wound. Finding s are compatible with sequela of chronic osteomyelitis. 2. Findings consistent with cellulitis involving the soft tissues near the expected draining sinus tr act. No evidence of soft tissue abscess. 3. Postoperative changes involving the upper medial portion of the lower leg after prior muscle flap placement into a tibial defect. Correlate with operative history. 4. Muscle atrophy involving the lower leg. 5. Old healed tibial plateau fracture deformity. Report Dictated By: Mathew Jain at 10/26/2018 11:54 AM Report E-Signed By: Mathew Jain at 10/26/2018 12:13 PM [id number]
== END ==
LOC: MRI 04:22
PROVIDERS: ATTEND Internal Medicine Infectious Disease
DX: M86.662 Other chronic osteomyelitis, left tibia and fibula (principal)
CPT/HCPCS: 73720; A9577